=== PATIENT | male | born 1945 | race Caucasian/White ===

== ENCOUNTER 2017-10-09 17:56 | Emergency (ER) | payer MEDICARE, OTHER ==
[~2017-10-09] VITALS: Ht 182.9 cm; Wt 75.0 kg
[~2017-10-09 17:56] MED LIST: ASPIRIN LOW DOS81 M2 PO; CEPHALEXIN500 MG PO; FISH OIL1000 MG PO; LORTAB 5/3255 MG PO; NEXIUM40 M1 PO; VITAMIN D400 UNI3 PO
[2017-10-09] MEDS ORDERED: LISINOPRIL20 MG PO (18:05)
[2017-10-09] MEDS ORDERED: BENADRYL 50MG C50 MG PO (18:20)
[2017-10-09 19:28] VITALS: BP 128/72
== END 2017-10-09 19:39 | disposition home or self-care (01) ==
LOC: ED 17:56
DX: L50.9 Urticaria, unspecified (principal); I10 Essential (primary) hypertension; K21.9 Gastro-esophageal reflux disease without esophagitis

== ENCOUNTER 2020-08-11 06:46 | Observation (INO) | payer MEDICARE, OTHER ==
[~2020-08-11] VITALS: Ht 182.9 cm; Wt 75.0 kg
[~2020-08-11 06:46] MED LIST changes: +BENADRYL 50MG C50 MG PO; +LISINOPRIL20 MG PO
--- NOTE | 2020-08-11 06:51 | NUR ---
recieved for care from EMS. POC REVIEWED. Call baltazar in reach.
[2020-08-11] MEDS ORDERED: CITALOPRAM20 M1 PO (07:09)
[2020-08-11] MEDS ORDERED: MAGNESIUM 400 M1 TAB PO (07:10)
--- NOTE | 2020-08-11 07:46 | NUR ---
PATIENT RESTING QUIETLY. NO DISTRESS AT PRESENT. CALL RUIZ IN REACH.
[2020-08-11 07:53] LABS: HEMOGLOBIN 14.2 g/dl (14.0-18.0); MEAN CELL VOLUME 93.2 fL CALC (80.0-100.0); MEAN CORPUSCULAR HGB 30.1 pG CALC (26.0-32.0); MEAN CORPUSCULAR HGB CONC 32.3 g/dL CAL (32.0-36.0); NEUT# 8.04 thou/uL (1.82-7.42); RED BLOOD COUNT 4.72 mill/uL (4.70-6.10); RED CELL DISTRI WIDTH 13.3 % (11.5-15.5)
[2020-08-11 08:06] LABS: PROTHROMBIN TIME 10.5 SECONDS (9.0-12.5)
[2020-08-11 08:07] LABS: ALBUMIN 3.9 g/dL (3.2-5.0); ALKALINE PHOSPHATASE 67 u/l (38-126); ANION GAP 9 (6-22 (CALC)); BUN 17 mg/dL (8-23); BUN/CREATININE RATIO 16 (12-20 (CALC)); CARBON DIOXIDE 31 mmol/l (22-30); CHLORIDE 101 mmol/l (95-108); CREATININE 1.1 mg/dL (0.7-1.3); GFR > 60 ML/MIN (>=60 (CALC)); GFR FOR AFR.AMER. > 60 ML/MIN (>=60 (CALC)); POTASSIUM 4.2 mmol/l (3.5-5.1); SGOT/AST 25 u/l (19-48); SODIUM 137 mmol/l (137-146); TOTAL PROTEIN 7.3 g/dL (6.3-8.2)
[2020-08-11 08:19] LABS: MYOGLOBIN 42 ng/mL (0 - 121)
--- NOTE | 2020-08-11 08:35 | NUR ---
PATIENT TO RADIOLOGY
--- NOTE | 2020-08-11 08:52 | NUR ---
RESTING QUIETLY. CALL RUIZ IN REACH.
--- NOTE | 2020-08-11 09:53 | NUR ---
REPORT TO ONCOMING RN DIANE IN SBAR FORMAT. PATIENT STABLE.
--- NOTE | 2020-08-11 10:00 | NUR ---
ASSUMED CARE, PT RESTING IN BED, AAOX4, O2 VIA NC 2 L, SAT 99%. PT DENIES NEED FOR PAIN MEDICATION AT THIS TIME STATED BY HIM RATING PAIN 1-2/10 AT THIS TIME. NAD NOTED. SPOUSE AT BEDSIDE. BED LOCKED AND IN LOWEST POSITION, SIDE RAILS UP X2 FOR SAFETTY. CALLLIGHT WITHIN REACH. PLAN REVIEWED, PT VERBALIZES UNDERSTANDING.
--- NOTE | 2020-08-11 10:05 | NUR ---
DR SHEPPARD AT BEDSIDE
--- NOTE | 2020-08-11 10:47 | NUR ---
NEW IV STARTED TO LEFT FA #20. HEPARIN STARTED AND INFUSING TO RAC #20. PATIENT TOLERATING WELL. NEXT PTT TIMED FOR 1650.
--- NOTE | 2020-08-11 11:50 | NUR ---
REPORT CALED TO CHESTER WREN IN ICU IN SBAR FORMAT. ALL QUESTIONS ANSWERED.
--- NOTE | 2020-08-11 11:53 | NUR ---
PATIENT EATING LUNCH, VISITING HOURS AND PLAN EXPLAINED TO PATIENT AND SPOUSE, BOTH VERBALIZE UNDERSTANDING.
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
--- NOTE | 2020-08-11 14:15 | NUR ---
PT SLEEPING AT THIS TIME. VITAL SIGNS REMAIN STABLE. NO COMPLAINTS OR DISTRESS.
[2020-08-11 14:52] VITALS: BP 167/78
--- NOTE | 2020-08-11 14:53 | NUR ---
CASE MANAGEMENT IN SPEAKING WITH PT. PT REMAINS ALERT/ORIENTED X3. OXYGEN REMAINS 97% ON OW @ 2 LITRES.
--- NOTE | 2020-08-11 15:33 | NUR ---
PT SITTING UP IN BED, TALKING AND LAUGHING ON PHONE, NO DISTRESS NOTED.
--- NOTE | 2020-08-11 16:30 | NUR ---
LAB HERE FOR BLOOD DRAW FOR PTT.
[2020-08-11 17:05] VITALS: BP 161/81
--- NOTE | 2020-08-11 18:08 | NUR ---
LEFT AFTER VISITING FOR HER 30 MIN. PT RESTING QUIETLY ON BED, WATCHING TV, NO DISTRESS , NO SOB, NO CHEST PAIN. HEPARIN REMAINS INFUSING, IV SITE HEALTHY
--- NOTE | 2020-08-11 19:18 | NUR ---
REPORT GIVEN BY EM. PATIENT IN BED WATCHING TV. RESP EVEN AND SHALLOW. C/O RIGHT RIB PAIN AND DISCOMFORT WHEN TAKING A DEEP BREATH. MEDICATED PER MD ORDERS. FALL AND SAFTEY PRECAUTIONS IN PLACE. IV INFUSING HEPARIN. PLAN OF CARE DISCUSSED. PATIENT INFORMED TO CALL WITH ANY QUESTIONS OR CONCERNS.
[2020-08-11 20:00] VITALS: BP 162/83
[2020-08-11 22:00] VITALS: BP 138/73
--- NOTE | 2020-08-11 22:00 | NUR ---
LAB AT BEDSIDE TO DRAW BLOOD FOR PTT
--- NOTE | 2020-08-11 22:44 | NUR ---
REVIEWED HEPARIN PTT RESULTS NO CHANGES NEEDED, DOUBLED CHECKED WITH UCHE.
--- NOTE | 2020-08-11 23:27 | NUR ---
patient resting with eyes closed. resp even and unlabored. no s/s of distress noted.
[2020-08-12] VITALS (10 sets, daily range): BP systolic 138–163; BP diastolic 72–80
--- NOTE | 2020-08-12 02:00 | NUR ---
PATIENT RESTING WITH EYES CLOSED. RESP EVEN AND UNLABORED. NO S/S OF DISTRESS NOTED. FALL AND SAFTEY PRECAUTIONS IN PLACE.
[2020-08-12 04:42] LABS: HEMATOCRIT 38.8 % (39.0-50.0); HEMOGLOBIN 12.7 g/dl (14.0-18.0); IMMATURE GRANULOCYTES 0.8 % (0.0-5.0); MEAN CORPUSCULAR HGB 30.5 pG CALC (26.0-32.0); MEAN CORPUSCULAR HGB CONC 32.7 g/dL CAL (32.0-36.0); NEUT# 5.45 thou/uL (1.82-7.42); RED BLOOD COUNT 4.17 mill/uL (4.70-6.10); RED CELL DISTRI WIDTH 13.2 % (11.5-15.5)
[2020-08-12 04:59] LABS: ANION GAP 8 (6-22 (CALC)); BUN 17 mg/dL (8-23); BUN/CREATININE RATIO 19 (12-20 (CALC)); CARBON DIOXIDE 29 mmol/l (22-30); CHLORIDE 103 mmol/l (95-108); CREATININE 0.9 mg/dL (0.7-1.3); GFR > 60 ML/MIN (>=60 (CALC)); GFR FOR AFR.AMER. > 60 ML/MIN (>=60 (CALC)); POTASSIUM 4.2 mmol/l (3.5-5.1); SODIUM 135 mmol/l (137-146)
--- NOTE | 2020-08-12 07:04 | NUR ---
REPORT RECEIVED FROM CHESTER VARELA. PT SITTING UP IN BED HIGH FOWLERS; ALERT AND ORIENTED X 3; USING CELL PHONE. C/O 3/10 RIGHT RIB SORENESS AT REST; PAIN INCREASED TO 7/10 WITH MOVEMENT, COUGHING, AND HAVING OCCASIONAL SPASMS; PILLOW PROVIDED FOR SPLINTING. RESPIRATIONS EVEN AND UNLABORED ON OXYGEN 2L VIA NC; SPO2 89%. VSS. SINUS BARRY 45 ON ARCHITECTURAL PRACTICE MANAGER. PLAN OF CARE REVIEWED. PT ENCOURAGED TO VERBALIZE CONCERNS. STATES UNDERSTANDING. SAFETY MEASURES IN PLACE; CALL LIGHT WITHIN REACH.
--- NOTE | 2020-08-12 08:18 | NUR ---
DR. BRAVO AT BEDSIDE.
--- NOTE | 2020-08-12 10:13 | NUR ---
UP TO BSC FOR BOWEL MOVEMENT. CASE MANAGEMENT CONSULTED FOR ANTICOAGULANTS RELATED TO INSURANCE.
--- NOTE | 2020-08-12 11:03 | NUR ---
FIRST DOSE OF ELIQUIS ADMINISTERED; PT EDUCATED ON MEDICATION AND SIDE EFFECTS INCLUDING BLEEDING. PT STATES UNDERSTANDING.
--- NOTE | 2020-08-12 11:25 | NUR ---
ROOM ASSIGNMENT RECEIVED FROM [facility] ROOM 268; PT UPDATED ON PLANNED TRANSFER.
--- NOTE | 2020-08-12 12:26 | NUR ---
REPORT REC FROM Jonathan SOMMER RN
--- NOTE | 2020-08-12 12:35 | NUR ---
REPORT GIVEN TO CHESTER DANIELSON. PT TRANSPORTED TO [facility] VIA WHEELCHAIR WITH OXYGEN IN STABLE CONDITION.
--- NOTE | 2020-08-12 12:36 | NUR ---
PT ARRIVED VIA WC ACCOMPANIED BY Willy VAZQUEZ RN. PT CARE RESUMED BY THIS BINDER FIXER.PT A&O X3. STEADY DURING AMBULATION. CLEAR BREATH SOUNDS UPON AUSCULTATION. EXERTIONAL SOB NOTED. O2 VIA NC @2 L PLACED. #20 LAC AND #[address]. PATENT AND HEALTHY[address] EPIC BEACON ANALYST BOX #8950 PLACED ON PT, ED NOTIFIED OF EPIC BEACON ANALYST THAT WAS GOING TO BE PLACED ON PT. ORIENTED PT TO ROOM. DISCUSSED POC. CALL LIGHT PLACED WITHIN REACH.
--- NOTE | 2020-08-12 14:20 | NUR ---
PT SITTING IN BED. NO DISTRESS NOTED. DENIES ANY NEEDS AT THIS TIME. CALL LIGHT WITHIN REACH.
--- NOTE | 2020-08-12 16:01 | NUR ---
PRESENT AT BEDSIDE. NO NEEDS BY PT AT THIS TIME. CALL LIGHT WITHIN REACH.
--- NOTE | 2020-08-12 17:23 | NUR ---
PT SITTING ON THE SIDE OF THE BED EATING DINNER. NO NEEDS AT THIS TIME. CALL LIGHT LEFT WITHIN REACH.
--- NOTE | 2020-08-12 20:00 | NUR ---
PATIENT ALERT ORIEMTED PLEASANT WITH SALINE LOCK G 20 RAC PATENT FLUSHES WELL AND ANOTHER SALINE LOCK ON LAC PATENT FLUSHES WELL, REMAINS ON TELE SB 56, HOOKED TO O2 @ 2LPM POX ONLY 89-90% INCREASED ON 3 LPM POX MAINTAINED AT 93%, LUNG SOUND CLEAR DIMINISHED, BRUISING NOTED ON SACRAL AREA EXTENDING TO BUTTOCKS C/O PAIN WILL MEDICATE, CALL LIGHT AT REACH.
[2020-08-13] VITALS: BP 141/79
--- NOTE | 2020-08-13 | NUR ---
PATIENT APPEARS TO BE SLEEPING WITH EYES CLOSED, BREATHING EVEN AND UNLABORED, HOOKED TO O2 @ 3LPM VIA NC CALL LIGHT AT REACH.
--- NOTE | 2020-08-13 03:13 | NUR ---
RECEIVED A PHONE CALL FROM ED, ABOUT PATIENT TELE SB 40'S, PATIENT NOT IN DISTRESS, BREATHING UNLABORED, CALL LIGHT AT REACH.
[2020-08-13 03:50] VITALS: BP 130/72
[2020-08-13 05:43] LABS: ANION GAP 10 (6-22 (CALC)); BUN 18 mg/dL (8-23); BUN/CREATININE RATIO 17 (12-20 (CALC)); CARBON DIOXIDE 28 mmol/l (22-30); CHLORIDE 102 mmol/l (95-108); CREATININE 1.1 mg/dL (0.7-1.3); GFR > 60 ML/MIN (>=60 (CALC)); GFR FOR AFR.AMER. > 60 ML/MIN (>=60 (CALC)); POTASSIUM 4.3 mmol/l (3.5-5.1); SODIUM 136 mmol/l (137-146)
[2020-08-13 05:52] LABS: HEMATOCRIT 38.5 % (39.0-50.0); HEMOGLOBIN 12.5 g/dl (14.0-18.0); IMMATURE GRANULOCYTES 0.8 % (0.0-5.0); MEAN CELL VOLUME 92.3 fL CALC (80.0-100.0); MEAN CORPUSCULAR HGB CONC 32.5 g/dL CAL (32.0-36.0); NEUT# 5.14 thou/uL (1.82-7.42); RED BLOOD COUNT 4.17 mill/uL (4.70-6.10); RED CELL DISTRI WIDTH 13.2 % (11.5-15.5)
--- NOTE | 2020-08-13 07:00 | NUR ---
RECIEVED REPORT FROM CHESTER SCHNEIDER.
[2020-08-13 07:58] VITALS: BP 123/64
--- NOTE | 2020-08-13 08:00 | NUR ---
PT SITTING UP ON SIDE OF BED. PT IS A/O X3. ASSESSMENT AND VITALS COMPLETED.RESPIRATIONS ARE EVEN AND UNLABORED WITH NO DISTRESS NOTED ON 3L NC. PT COMPLAINS OF SOB ON EXCERTION. HEART RHYTHM NORMAL WITH TELE IN PLACE. SB PER ER MONITORING. BOWEL SOUNDS ARE ACTUVE. RADIAL AND PEDAL PULSES STRONG. #20G IN RAC AND #20G IN LAC FLUSHED, SITE APPEARS HEALTHY AND PATENT. SKIN IS WARM AND INTACT. BRUISING NOTED TO SACRUM AND BUTTOCKS. PT DENIES OF ANY PAINS OR NEEDS AT THIS TIME. ALL SAFTEY PRECAUTIONS ARE IN PLACE WITH CALL LIGHT IN REACH. WILL CONTINUE TO MONITOR.
--- NOTE | 2020-08-13 09:04 | NUR ---
DR LAND AT BEDSIDE
[2020-08-13 10:30] VITALS: BP 155/72
--- NOTE | 2020-08-13 10:40 | NUR ---
WALK TEST COMPLETED. PT O2 SAT 95% ON ROOM AIR WHILE RESTING. O2 DESAT TO 86% WHILE WALKING ON ROOM AIR. PT O2 SAT 97% ON 3L NC RESTING IN BED. RESPIRATIONS REAMINS EVEN AND UNLABORED WITH NO DISTRESS. PT DENIES OF ANY NEEDS. ALL SAFETY PRECAUTIONS ARE IN PLACE. WILL CONTINUE TO MONITOR.
[2020-08-13] MEDS ORDERED: ELIQUIS STARTER5 MG PO (11:54)
[2020-08-13] MEDS ORDERED: OXY1 (11:55)
[2020-08-13] MEDS ORDERED: TRAMADOL HCL50 MG PO (11:56)
--- NOTE | 2020-08-13 11:57 | NUR ---
PT RESTING IN SEMI FOWLERS POSITION WATCHING TV. REPSIRATIONS ARE EVEN AND UNLABORED WITH NO DISTRESS NOTED. TELE MONITORING IN PLACE. PT INFORMED OF WAITING FOR DISCHARGE INSTRUCTIONS. PT VERBALIZED UNDERSTANDING. ALL SAFETY PRECAUTIONS ARE IN PLACE WITH CALL LIGHT IN REACH. WILL CONTINUE TO MONITOR.
--- NOTE | 2020-08-13 14:00 | NUR ---
PT UPDATED ON DISCHARGE. MINE MOTOR OPERATOR INFORMED PT THAT ALL DISCHARGE ORDERS WHERE COMPLETED AND HOME OXYGEN WAS THE ONLY HOLD. PT STATED " THIS IS BULL, I CAN JUST AMA. COURTNEY BEEN WAITING ALL DAY FOR IT. I CALL MY TO COME UP HERE, SHES NOT LEAVING WITHOUT ME." MINE MOTOR OPERATOR REASSURED PT THAT CM WAS WORKING ON HOME OXYGEN.
--- NOTE | 2020-08-13 14:25 | NUR ---
PT BECOMING MORE AGGITATED.PT STATES " IM NOT PAYING A DIME FOR THE OXYGEN AND I DONT NEED IT." SPEAKING TO CM ABOUT NEED FOR HOME O2.
--- NOTE | 2020-08-13 15:03 | NUR ---
PT AND EDUCATED ON DISCHARGE INSTRUCTIONS. VERBALIZED UNDERSTANDING. #20G IN RAC AND #20G IN LAC REMOVED WITH CATHATERS STILL INTACT. HOME O2 AT BEDSIDE.
--- NOTE | 2020-08-13 15:05 | NUR ---
Discharge instructions given. Patient verbalizes understanding of same. Discharged in stable condition via Wheelchair to Home with staff. All belongings sent with pt. PT DISCHARGED HOME IN STABLE WITH HOME O2 IN STABLE CONDITION ACCOMPINED BY AND STAFF WITH ALL BELONGINGS AND DISCHARGE INSTRUCTIONS
--- NOTE | 2020-08-13 15:10 | NUR ---
Discharge instructions given. Patient verbalizes understanding of same. Discharged in stable condition via Wheelchair to *Other with staff. All belongings sent with pt. PT DISCHARGED TO [facility] IN STABLE CONDITION VIA [facility] WITH ALL DISCHARGE INSTRUCTIONS AND BELONGINGS.
== END 2020-08-13 15:06 | disposition home or self-care (01) ==
LOC: ED 06:46 → ED-I 10:03 → ED 10:12 → ICU 10:13 → MS2 10:13 → ICU 10:13 → MS2 08-12 12:35
PROVIDERS: Emergency Medicine; ADMIT Internal Medicine; ATTEND Internal Medicine
DX: I26.99 Other pulmonary embolism without acute cor pulmonale (principal); R09.02 Hypoxemia; S22.41XA Multiple fractures of ribs, right side, initial encounter for closed fracture; S70.01XA Contusion of right hip, initial encounter; I10 Essential (primary) hypertension; K21.9 Gastro-esophageal reflux disease without esophagitis; V86.56XA Driver of dirt bike or motor/cross bike injured in nontraffic accident, initial encounter; Z20.822 Contact with and (suspected) exposure to COVID-19
CPT/HCPCS: J1644; S0164

== ENCOUNTER 2021-01-27 12:51 | Emergency (ER) | payer MEDICARE, OTHER ==
[~2021-01-27] VITALS: Ht 182.9 cm; Wt 75.0 kg
[~2021-01-27 12:51] MED LIST changes: +ADLT ASA LOW81 MG PO; -ASPIRIN LOW DOS81 M2 PO; +CITALOPRAM20 M1 PO; +ELIQUIS STARTER5 MG PO; +MAGNESIUM 400 M1 TAB PO; +OXY1; +TRAMADOL HCL50 MG PO; +VITAMIN D400 UNI1 PO; -VITAMIN D400 UNI3 PO
[2021-01-27] MEDS ORDERED: CELEXA20 MG PO (13:23)
[2021-01-27 14:35] VITALS: BP 142/82
== END 2021-01-27 14:35 | disposition home or self-care (01) ==
LOC: ED 12:51
DX: S66.911A Strain of unspecified muscle, fascia and tendon at wrist and hand level, right hand, initial encounter (principal); I10 Essential (primary) hypertension; X58.XXXA Exposure to other specified factors, initial encounter; Y93.I9 Activity, other involving external motion

== ENCOUNTER 2022-08-16 14:50 | Emergency (ER) | payer MEDICARE, OTHER ==
[~2022-08-16] VITALS: Ht 182.9 cm; Wt 71.7 kg
[~2022-08-16 14:50] MED LIST changes: +CELEXA20 MG PO
[2022-08-16 15:12] VITALS: BP 165/74
[2022-08-16 16:07] LABS: BASO% 0.4 % (0-3); EOS% 0.5 % (0-8); HEMATOCRIT 44.7 % (39.0-50.0); HEMOGLOBIN 14.3 g/dl (14.0-18.0); IMMATURE GRANULOCYTES 0.2 % (0.0-5.0); LYMPH% 5.8 % (15-41); MEAN CELL VOLUME 95.5 fL CALC (80.0-100.0); MEAN CORPUSCULAR HGB 30.6 pG CALC (26.0-32.0); MONO% 5.4 % (2-13); NEUT# 12.12 thou/uL (1.82-7.42); NEUT% 87.7 % (42-76); RED BLOOD COUNT 4.68 mill/uL (4.70-6.10); RED CELL DISTRI WIDTH 13.2 % (11.5-15.5)
[2022-08-16 16:27] LABS: ALBUMIN 4.2 g/dL (3.2-5.0); ALKALINE PHOSPHATASE 59 u/l (38-126); ANION GAP 12 (6-22 (CALC)); BUN 21 mg/dL (8-23); BUN/CREATININE RATIO 19 (12-20 (CALC)); CARBON DIOXIDE 27 mmol/l (22-30); CHLORIDE 106 mmol/l (95-108); CREATININE 1.1 mg/dL (0.7-1.3); GFR FOR AFR.AMER. > 60 ML/MIN (>=60 (CALC)); GFR OTHER RACES > 60 ML/MIN (>=60 (CALC)); LIPASE 150 u/l (23-300); SGOT/AST 31 u/l (19-48); SODIUM 141 mmol/l (137-146); TOTAL PROTEIN 7.4 g/dL (6.3-8.2)
[2022-08-16 16:33] LABS: BILIRUBIN, TOTAL 0.6 mg/dL (0.2-1.3)
== END 2022-08-16 17:22 | disposition home or self-care (01) ==
LOC: ED 14:50
PROVIDERS: Family Medicine
DX: S42.022A Displaced fracture of shaft of left clavicle, initial encounter for closed fracture (principal); S06.9X9A Unspecified intracranial injury with loss of consciousness of unspecified duration, initial encounter; V86.56XA Driver of dirt bike or motor/cross bike injured in nontraffic accident, initial encounter; I10 Essential (primary) hypertension; Y93.I9 Activity, other involving external motion; Y92.39 Other specified sports and athletic area as the place of occurrence of the external cause

== ENCOUNTER 2023-06-17 20:44 | Emergency (ER) | payer MEDICARE, OTHER ==
[~2023-06-17] VITALS: Ht 182.9 cm; Wt 76.2 kg
[2023-06-17] MEDS ORDERED: AMLODIPINE BESYL5 MG PO (21:38)
[2023-06-18 00:49] VITALS: BP 165/70
== END 2023-06-18 00:49 | disposition home or self-care (01) ==
LOC: ED 20:44
DX: S42.021A Displaced fracture of shaft of right clavicle, initial encounter for closed fracture (principal); I10 Essential (primary) hypertension; V86.56XA Driver of dirt bike or motor/cross bike injured in nontraffic accident, initial encounter